=== PATIENT | female | born 1940 | race Caucasian/White ===

== ENCOUNTER 2018-09-11 08:13 | Inpatient (IN) | payer MEDICARE | END 2018-09-13 11:35 | disposition home or self-care (01) | LOC: ER 08:13 → ED HOLD 09:59 → SUR 3N 14:45 | DX: K80.50 Calculus of bile duct without cholangitis or cholecystitis without obstruction (principal); K85.90 Acute pancreatitis without necrosis or infection, unspecified ==

== ENCOUNTER 2018-10-05 06:35 | Day surgery (SDC) | payer MEDICARE ==
[2018-10-05] VITALS (9 sets, daily range): BP systolic 89–150; BP diastolic 32–96
[~2018-10-05] VITALS: Ht 162.6 cm; Wt 88.6 kg
[~2018-10-05 06:35] MED LIST: ESOM20CA PO; LIDOcaine Viscous 15ml cup ONE; MELA5TAB12 PO; MIDAZolam 5mg/5ml vial ONE; diphenhydrAMINE 50 mg/ml inj ONE; fentaNYL/PF 50MCG/1 ML 2ML syringe ONE; glucagon, human recombinant 1mg kit ONE; iohexol 300 MG/1 ML 50ml polymer ONE; levoFLOXACIN-Levaquin 500mg/D5 100 ML IV ONE
[2018-10-05] MEDS ORDERED: normal saline 1000ml 1,000 ML IV SCH (06:47)
[2018-10-05] MEDS ORDERED: LIDOcaine Viscous 15ml cup PO ONE (06:50)
[2018-10-05] MEDS ORDERED: iohexol 300 MG/1 ML 50ml polymer IV ONE (06:50)
[2018-10-05] MEDS ORDERED: simethicone 40mg/0.6ml oral drops 30ml MC ONE (06:50)
[2018-10-05] MEDS ORDERED: fentaNYL/PF 50MCG/1 ML 2ML syringe IV PRN (06:50)
[2018-10-05] MEDS ORDERED: MIDAZolam 5mg/5ml vial IV PRN (06:50)
[2018-10-05] MEDS ORDERED: fentaNYL/PF 50MCG/1 ML 2ML syringe ONE ×2 (09:28)
== END 2018-10-05 10:59 | disposition home or self-care (01) ==
LOC: GI LAB 06:35
PROVIDERS: ATTEND Internal Medicine Gastroenterology
DX: K80.51 Calculus of bile duct without cholangitis or cholecystitis with obstruction (principal); Z46.59 Encounter for fitting and adjustment of other gastrointestinal appliance and device
CPT/HCPCS: 43264; 43276; 74328; 99152; 99153; C1769; C1773; J1200; J1610; J1956; J2250; J3010; J7030; Q9967; 43274; 43275; A4620

== ENCOUNTER 2018-10-23 08:27 | Day surgery (SDC) | payer MEDICARE ==
[2018-10-23] VITALS (10 sets, daily range): BP systolic 120–146; BP diastolic 60–84
[~2018-10-23] VITALS: Ht 162.6 cm; Wt 88.6 kg
[~2018-10-23 08:27] MED LIST changes: -LIDOcaine Viscous 15ml cup ONE; -MIDAZolam 5mg/5ml vial ONE; -diphenhydrAMINE 50 mg/ml inj ONE; -fentaNYL/PF 50MCG/1 ML 2ML syringe ONE; -glucagon, human recombinant 1mg kit ONE; -iohexol 300 MG/1 ML 50ml polymer ONE; -levoFLOXACIN-Levaquin 500mg/D5 100 ML IV ONE
[2018-10-23] MEDS ORDERED: meperidine/PF 100mg/ml syringe ONE (08:57)
[2018-10-23] MEDS ORDERED: levoFLOXACIN-Levaquin 500mg/D5 100 ML IV ONE (08:58)
[2018-10-23] MEDS ORDERED: fentaNYL/PF 50MCG/1 ML 2ML syringe ONE (08:58)
[2018-10-23] MEDS ORDERED: LIDOcaine Viscous 15ml cup ONE (08:58)
[2018-10-23] MEDS ORDERED: diphenhydrAMINE 50 mg/ml inj ONE (08:58)
[2018-10-23] MEDS ORDERED: MIDAZolam 5mg/5ml vial ONE (08:58)
[2018-10-23] MEDS ORDERED: glucagon, human recombinant 1mg kit ONE (08:59)
[2018-10-23] MEDS ORDERED: iohexol 300 MG/1 ML 50ml polymer ONE (08:59)
== END 2018-10-23 14:15 | disposition home or self-care (01) ==
LOC: GI LAB 08:27
PROVIDERS: ATTEND Internal Medicine Gastroenterology
DX: K80.51 Calculus of bile duct without cholangitis or cholecystitis with obstruction (principal)
CPT/HCPCS: 43264; 43275; 99152; 99153; J1200; J1610; J1956; J2175; J2250; J3010; J7030; Q9967; 43277; A4620; C1726; C1769; C1773